=== PATIENT | female | born 1945 | race Caucasian/White ===

== ENCOUNTER → 2017-06-17 | Outpatient (CLI) | payer MEDICARE ==
[~2017-06-17] MED LIST: REGADENOSON 0.4 MG/5 ML DISP.SYRIN. IV ONE
--- NOTE | 2017-06-17 18:44 | RAD ---
APPROVED REPORT Test Type: Pharmacological Stress Nurse/Tech: CHAPIN HARRY Test Indications: DYSPNEA, NAUSEA Cardiac History: HTN, SEE EHR Medications: SEE EHR Medical History: CKD, SEE EHR Resting ECG: SR APPEARS JUNCTIONALWITH INVERTED P WAVE Resting Heart Rate: 51 bpm Resting Blood Pressure: 131/54mmHg Pretest Chest Pain: No chest pain Nurse/Tech Notes LUNG SOUNDS CLEAR, S1S2 WNL. Consent: The procedure was explained to the patient in lay terms. Informed consent was witnessed. [employer] eout was entered into [employer]. History and Stress Test performed by RT Linda (R) (N) Pharm. Details Pharmacologic stress testing was performed using 0.4mg per 5ml of regadenoson given intravenously ove r 7-10 seconds. Stress Symptoms HEADACHE, STOMACH ACHE. POST EXERCISE Reason for Termination: Infusion complete Max HR: 76 bpm Max Blood Pressure: 131/54mmHg Chest Pain: No. Arrhythmia: No. ST Change: No. Imaging Protocol IMAGE PROTOCOL: Rest Tc-99m/stress Tc-99m 1 day Rest: Stress: Viability: Radiopharm.Tc99m [id number] Sestamibi Dose11.4mCi 34.1mCi Duration 15min. 10min. Img Date 06/17/2017 06/17/2017 Inj-Img [id number]. 60min. Rest Admin Site:IV - Right AntecubitalAdministrator:RT Georgette (R)(N) Stress Admin Site: IV - Right AntecubitalAdministrator: RT Linda (R)(N) STRESS DATA End Diast. Vol.97.0mlAv. Heart Rate58.0bpm End Syst. Vol.26.0mlCO Index BSA0.0L/min Myocardial Jbfn406.0gEject. Sfmoxmfh33.0% Stress Rates Pk. Fill Rate2.22EDV/secLVtime Pk. Fill 152.90msec Pk. Empty Rate3.19ESV/secLVtime Pk. Dnxuv918.31msec 11/25 Pk. Fill1.55EDV/sec Stress Scores Regional WT1.00Summed WT4.00 Regional WM0.00Summed WM0.00 LV Perf. Quant 17 Seg. SSS1.00 17 Seg. SRS4.00 17 Seg. SDS0.00 Stress Defect Extent (% LAD)0.00Rest Defect Extent (% LAD)0.00Rev. Defect Extent (% LAD)0.00 Stress Defect Extent (% LCX) 2.50Rest Defect Extent (% LCX)21.30Rev. Defect Extent (% LCX)0.00 Stress Defect Extent (% RCA)0.00Rest Defect Extent (% RCA)0.00Rev. Defect Extent (% RCA)0.00 Stress Defect Extent (% JEANCARLOS)0.40Rest Defect Extent (% JEANCARLOS)4.30Rev. Defect Extent (% JEANCARLOS)0.00 Conclusion 1. No electrocardiographic changes suggestive of myocardial ischemia with pharmacological stress. 2. No significant perfusion defects to suggest myocardial ischemia or scar. 3. Normal wall motion and wall thickening with an ejection fraction of 73%. 4. Scan indicates low risk for future cardiac events
== END | disposition home or self-care (01) ==
LOC: NM 07:44
PROVIDERS: ATTEND Internal Medicine Cardiovascular Disease
DX: R07.9 Chest pain, unspecified (principal); R53.83 Other fatigue; R06.00 Dyspnea, unspecified; R11.0 Nausea
CPT/HCPCS: 78452; 93017; 96374; 96375; 96376; A9500; J2785

== ENCOUNTER → 2017-07-28 | Outpatient (CLI) | payer MEDICARE ==
--- NOTE | 2017-07-28 14:55 | KCIC ---
Bilateral lower extremity arterial Doppler ultrasound HISTORY: Bilateral leg pain. Pain at night. TECHNIQUE: Grayscale, color Doppler and duplex analysis. Right leg: Biphasic waveforms from the right common femoral artery through the calf and dorsalis pedis artery, except for the right deep femoral artery which demonstrates monophasic waveforms. No evidence of occlusion. No significant velocity elevation or change is identified to indicate high-grade stenosis. Left leg: Left common femoral artery demonstrates triphasic waveform. Monophasic waveform in the left deep femoral artery. Biphasic waveforms from the superficial femoral artery through the calf and dorsalis pedis artery. No evidence of occlusion. No significant velocity elevation or changes identified to indicate a high-grade stenosis. IMPRESSION: Mostly biphasic waveforms bilaterally suggesting atherosclerotic disease, but no evidence of a occlusion or high-grade stenosis. Electronically signed by: Raphael Nelson MD (07/28/2017 2:51 PM) [facility]
== END | disposition home or self-care (01) ==
LOC: KCIC US 13:50
PROVIDERS: ATTEND Internal Medicine Cardiovascular Disease
DX: M79.604 Pain in right leg (principal); M79.605 Pain in left leg
CPT/HCPCS: 93925

== ENCOUNTER → 2018-06-29 | Outpatient (CLI) | payer MEDICARE ==
[2018-06-29] MEDS: REGADENOSON 0.4 MG/5 ML DISP.SYRIN. IV (09:20)
== END | disposition home or self-care (01) ==
LOC: NM 07:40
DX: R07.9 Chest pain, unspecified (principal); I10 Essential (primary) hypertension
CPT/HCPCS: 78452; 93017; 96374; 96375; 96376; A9500; J2785